=== PATIENT | female | born 2000 | race African-American/Black ===

== ENCOUNTER 2024-03-30 19:41 | Emergency (ER) | payer SELFPAY, OTHER ==
[2024-03-30] MEDS ORDERED: Ketorolac Tromethamine 30 MG (1 mL) VIAL ONE (20:54)
[2024-03-30] MEDS ORDERED: Cyclobenzaprine 10 MG TAB ONE (20:54)
== END 2024-03-30 21:05 | disposition home or self-care (01) ==
LOC: CSHERS 19:41
DX: S09.90XA Unspecified injury of head, initial encounter (principal); M54.2 Cervicalgia; V49.9XXA Car occupant (driver) (passenger) injured in unspecified traffic accident, initial encounter
CPT/HCPCS: 96374; J1885